=== PATIENT | male | born 1975 | race Caucasian/White ===

== ENCOUNTER 2021-09-04 23:11 | Emergency (ER) | payer OTHER ==
[~2021-09-04] VITALS: Ht 167.6 cm; Wt 63.6 kg
[2021-09-05 00:35] LABS: APPEARANCE,URINE CLEAR (CLEAR); BILIRUBIN,URINE NEGATIVE (NEGATIVE); GLUCOSE, URINE (UA) NEGATIVE (NEGATIVE); KETONES,URINE NEGATIVE (NEGATIVE); LEUKOCYTE ESTERASE ,URINE NEGATIVE (NEGATIVE); NITRATE,URINE NEGATIVE (NEGATIVE); OCCULT BLOOD,URINE NEGATIVE (NEGATIVE); PROTEIN,URINE TRACE mg/dL (NEGATIVE); SPECIFIC GRAVITIY, URINE 1.029 (1.003-1.030); UROBILINOGEN,URINE <=1.0 mg/dL (<=1.0)
[2021-09-05 00:47] LABS: BACTERIA,URINE None Seen /HPF (None Seen); RBC,URINE 0-2 /HPF (0-2); WBC,URINE 0-2 /HPF (0-5)
[2021-09-05] MEDS ORDERED: CIPR-278 PO (01:30)
[2021-09-05] MEDS ORDERED: LIDOCAINE/PF 1% 2 ML VIAL IM ONE (01:30)
[2021-09-05] MEDS ORDERED: CefTRIAXone SODIUM 1 GM/VIAL IM ONE (01:30)
[2021-09-05] MEDS ORDERED: AZITHROMYCIN 500 MG TABLET PO ONE (01:30)
[2021-09-05 05:50] VITALS: BP 118/72
== END 2021-09-05 05:00 | disposition home or self-care (01) ==
LOC: EMS 23:12
DX: N45.1 Epididymitis (principal); F17.210 Nicotine dependence, cigarettes, uncomplicated; F12.90 Cannabis use, unspecified, uncomplicated; F19.90 Other psychoactive substance use, unspecified, uncomplicated
CPT/HCPCS: 76870; 81001; 87491; 87591; 96372; 99284; J0696; J3490; Q9967

== ENCOUNTER 2023-09-26 15:17 | Emergency (ER) | payer OTHER ==
[~2023-09-26] VITALS: Ht 167.6 cm; Wt 59.1 kg
[~2023-09-26 15:17] MED LIST: CIPR-278 PO
[2023-09-26 15:42] VITALS: BP 142/82; PULSE 68; RESP 16; TEMP 98.3
[2023-09-26 16:42] LABS: ANION GAP 9 mmol/L (8-16); BASOPHILS % (AUTO) 1.4 % (0.0-2.0); CALCIUM, TOTAL 8.7 mg/dL (8.8-10.5); CARBON DIOXIDE 29 mmol/L (22-29); CHLORIDE 104 mmol/L (98-107); CREATININE 0.88 mg/dL (0.60-1.30); EOSINOPHILS % (AUTO) 2.2 % (1.0-6.0); GLOMERULAR FILTR. RATE CALC > 60 mL/min (>60); GLUCOSE,RANDOM 114 mg/dL (70-110); HEMOGLOBIN 15.3 g/dL (13.5-17.5); LYMPHOCYTES # (AUTO) 1.8 K/uL (1.0-4.8); LYMPHOCYTES % (AUTO) 25.8 % (22.0-44.0); MEAN CORPUSCULAR HEMOGLOBIN 32.8 pg (26.0-34.0); MEAN CORPUSCULAR HGB CONC 34.1 G/dL (31.0-37.0); MEAN CORPUSCULAR VOLUME 96 fL (80-100); MONOCYTES # (AUTO) 0.6 K/uL (0.1-1.0); NEUTROPHILS # (AUTO) 4.3 K/uL (1.8-7.7); NEUTROPHILS % (AUTO) 61.6 % (40.0-70.0); PLATELET COUNT (AUTO) 216 K/uL (150-450); POTASSIUM 3.5 mmol/L (3.5-5.1); RED BLOOD CELL COUNT(AUTO) 4.67 MIL/uL (4.50-5.90); RED CELL DISTRIBUTION WIDTH 13.9 % (11.5-14.5); SODIUM SERUM 142 mmol/L (136-145); UREA NITROGEN, BLOOD 12 mg/dL (7-18); WHITE BLOOD COUNT (AUTO) 6.9 K/uL (4.5-11.0)
[2023-09-26 16:48] LABS: ALANINE AMINOTRANSFERASE 98 U/L (12-78); ALKALINE PHOSPHATASE 77 U/L (46-116); ASPARTATE AMINOTRANSFERASE 72 U/L (15-37); BILIRUBIN,TOTAL 0.7 mg/dL (0.1-1.0); LIPASE 123 U/L (16-77); TOTAL PROTEIN, SERUM 7.9 g/dL (6.4-8.2)
[2023-09-26] MEDS ORDERED: POLY119P3 PO (19:25)
[2023-09-26] MEDS: MAGNESIUM CITRATE [LEMON] 300 ML ORAL SOLUTION PO ONE (19:35)
== END 2023-09-26 19:39 | disposition home or self-care (01) ==
LOC: EMS 15:18
DX: K59.00 Constipation, unspecified (principal); R10.30 Lower abdominal pain, unspecified; N43.3 Hydrocele, unspecified; F15.10 Other stimulant abuse, uncomplicated; F17.210 Nicotine dependence, cigarettes, uncomplicated; F12.90 Cannabis use, unspecified, uncomplicated; Z59.00 Homelessness unspecified
CPT/HCPCS: 74176; 80053; 83690; 85025; 99284

== ENCOUNTER 2024-06-28 13:37 | Emergency (ER) | payer OTHER ==
[~2024-06-28] VITALS: Ht 167.6 cm; Wt 68.2 kg
[~2024-06-28 13:37] MED LIST changes: +POLY119P3 PO
[2024-06-28 13:49] VITALS: TEMP 98.2
[2024-06-28 16:22] VITALS: BP 123/54; PULSE 99; RESP 18; O2SAT 100
[2024-06-28] MEDS: SODIUM CHLORIDE 0.9% 1,000 ML IV ONE (16:52)
[2024-06-28 16:56] LABS: BASOPHILS % (AUTO) 0.8 % (0.0-2.0); EOSINOPHILS % (AUTO) 2.6 % (1.0-6.0); HEMATOCRIT 49.4 % (41-53); HEMOGLOBIN 16.3 g/dL (13.5-17.5); LYMPHOCYTES # (AUTO) 2.4 K/uL (1.0-4.8); LYMPHOCYTES % (AUTO) 36.1 % (22.0-44.0); MEAN CORPUSCULAR HEMOGLOBIN 31.5 pg (26.0-34.0); MEAN CORPUSCULAR VOLUME 95 fL (80-100); MONOCYTES # (AUTO) 0.8 K/uL (0.1-1.0); MONOCYTES % (AUTO) 12.4 % (2.0-9.0); NEUTROPHILS # (AUTO) 3.2 K/uL (1.8-7.7); NEUTROPHILS % (AUTO) 48.1 % (40.0-70.0); PLATELET COUNT (AUTO) 229 K/uL (150-450); RED BLOOD CELL COUNT(AUTO) 5.18 MIL/uL (4.50-5.90); RED CELL DISTRIBUTION WIDTH 14.1 % (11.5-14.5); WHITE BLOOD COUNT (AUTO) 6.7 K/uL (4.5-11.0)
[2024-06-28 17:06] LABS: ANION GAP 4 mmol/L (8-16); CALCIUM, TOTAL 8.9 mg/dL (8.8-10.5); CARBON DIOXIDE 30 mmol/L (22-29); CHLORIDE 107 mmol/L (98-107); CREATININE 1.16 mg/dL (0.60-1.30); GLOMERULAR FILTR. RATE CALC > 60 mL/min (>60); GLUCOSE,RANDOM 75 mg/dL (70-110); POTASSIUM 4.1 mmol/L (3.5-5.1); SODIUM SERUM 141 mmol/L (136-145); UREA NITROGEN, BLOOD 13 mg/dL (7-18)
[2024-06-28] MEDS: MORPHINE SULFATE 2 MG/ML SYRINGE IVP ONE (17:39)
[2024-06-28] MEDS: TraMADol HCL 50 MG TABLET PO ONE (17:40)
== END 2024-06-28 18:13 | disposition home or self-care (01) ==
LOC: EMS 13:59
DX: N43.3 Hydrocele, unspecified (principal); Z59.00 Homelessness unspecified
CPT/HCPCS: 99284; 96360; 80048; 85025; 36415; 76870; J7030